=== PATIENT | female | born 1995 | race Caucasian/White ===

== ENCOUNTER 2017-01-27 17:29 | Emergency (ER) | payer OTHER ==
[2017-01-27 17:46] VITALS: RESP 16; TEMP 97.7
--- NOTE | 2017-01-27 19:37 | EDPHY ---
H & P Time Seen by Provider: 01/27/17 19:37 HPI/ROS: CHIEF COMPLAINT: Right sided chest pain HISTORY OF PRESENT ILLNESS: This 21-year-old woman presents with right-sided chest pain which started yesterday. Of note she had a cold all last week with sneezing and coughing and a runny nose and a little bit of a sore throat. Is feeling better now and she presents tonight with right-sided chest pain which started a little bit yesterday. She had 2 episodes today both lasting several minutes the 1st 1 at 1:00 p.m. when she describes it as sharp and pulsating and radiating down her right arm. Not associated with shortness of breath or hemoptysis or leg swelling. Not worse with exertion. A little bit worse with deep breath. REVIEW OF SYSTEMS: Eye: no change in vision ENT: HPI Cardiac: HPI Pulmonary: HPI Abdomen: no vomiting, diarrhea, abdominal pain Musculoskeletal: no back pain or leg swelling Skin: no rash Neuro: no headache Constitutional: no fever : no urinary symptoms A comprehensive 10 point review of systems is otherwise negative aside from elements mentioned in the history of present illness. PAST MEDICAL HISTORY: On oral contraceptive, wisdom tooth surgery Social history: Occasional cigarette, no cocaine, negative family history for venous thromboembolism or early cardiac disease. General Appearance: Alert and conversant, cooperative. Eyes: No scleral icterus. ENT, Mouth: Normal mucous membranes. Respiratory: Normal respiratory effort, breath sounds equal, lungs are clear to auscultation. Cardiovascular: Regular rate and rhythm. Gastrointestinal: Abdomen is soft and non tender. Neurological: Alert and oriented x3. Normally conversant. Face symmetric, normal movement and sensation in all extremities. Skin: Warm and dry, no rashes. Musculoskeletal: No peripheral edema and no joint swelling. No calf tenderness. Psychiatric: Not agitated. Emergency Department course/MDM: Low pretest probability for pulmonary embolism. EKG, chest x-ray, D-dimer. 2046: Results discussed, more likely pleurisy, stable for discharge. Smoking Status: Current every day smoker Constitutional: Initial Vital Signs Temperature (C) 36.5 C 01/27/17 17:43 Heart Rate 73 01/27/17 17:43 Respiratory Rate 16 01/27/17 17:43 Blood Pressure 148/67 H 01/27/17 17:43 O2 Sat (%) 98 01/27/17 17:43 O2 Delivery Mode Room Air Allergies/Adverse Reactions: No Known Allergies Allergy (Unverified 01/27/17 17:45) Home Medications: Medication Instructions Recorded Control 01/27/17 P-EPHED HCL/FEXOFENADINE HCL 01/27/17 [RASHEEDA-D 12 HOUR TABLET] Medical Decision Making - Diagnostics EKG Interpretation: 12-lead EKG interpreted by me; official reading is in trace master. My interpretation is sinus rhythm rate 79, normal, no ischemic changes. Imaging: Imaging Impressions Chest X-Ray 01/27/17 19:51 Impression: 1. Dextroscoliosis. 2. No acute pulmonary disease. Differential Diagnosis: Differential diagnosis considered for chest pain including but not limited to myocardial ischemia, aortic dissection, pericarditis, pulmonary embolus, chest wall pain, pleural inflammation and pulmonary infectious causes. - Data Points Laboratory Results: Laboratory Results 01/27/17 19:58 01/27/17 01/27/17 01/27/17 19:58 19:58 19:58 D-Dimer 0.38 ug/mLFEU ug/mLFEU (0.00-0.50) Sodium 139 mEq/L mEq/L (134-144) Potassium 3.5 mEq/L mEq/L (3.5-5.2) Chloride 103 mEq/L mEq/L (97-110) Carbon Dioxide 23 mEq/l mEq/l (22-31) Anion Gap 13 mEq/L mEq/L (8-16) BUN 11 mg/dL mg/dL (7-23) Creatinine 0.7 mg/dL mg/dL (0.6-1.0) Estimated GFR > 60 Glucose 94 mg/dL mg/dL (70-100) Calcium 9.6 mg/dL mg/dL (8.5-10.4) Beta HCG, Qual NEGATIVE Medications Given: Discontinued Medications Ibuprofen (Motrin) 600 mg PO EDNOW ONE Stop: 01/27/17 20:48 Last Admin: 01/27/17 20:57 Dose: 600 mg Departure - Departure Disposition: Home, Routine, Self-Care Clinical Impression: Chest pain Qualifiers: Chest pain type: unspecified Qualified Code(s): R07.9 - Chest pain, unspecified Condition: Good Instructions: Chest Pain (ED), Pleurisy (ED) Referrals: Dr. Estrella [Other] - As per Instructions (your PCP in [place])
--- NOTE | 2017-01-27 19:54 | CPEKG ---
Heart Rate: 79 RR Interval: 759 P-R Interval: 156 QRSD Interval: 84 QT Interval: 376 QTC Interval: 432 P Jefferson: -38 QRS Jefferson: 49 T Wave Jefferson: 42 EKG Severity - NORMAL ECG - EKG Impression: SINUS RHYTHM Electronically Signed By: Ryan Whipple 27-Jan-2017 21:11:18
[2017-01-27 20:18] LABS: ANION GAP 13 mEq/L (8-16); CALCIUM 9.6 mg/dL (8.5-10.4); CARBON DIOXIDE 23 mEq/l (22-31); CHLORIDE 103 mEq/L (97-110); CREATININE 0.7 mg/dL (0.6-1.0); GLOMERULAR FILTRATION RATE > 60; GLUCOSE 94 mg/dL (70-100); POTASSIUM 3.5 mEq/L (3.5-5.2); SODIUM 139 mEq/L (134-144)
[2017-01-27] MEDS ORDERED: IBUPROFEN 600 MG TAB PO ONE (20:47)
[2017-01-27 20:58] VITALS: BP 142/93; PULSE 71; O2SAT 96
== END 2017-01-27 20:58 | disposition home or self-care (01) ==
DX: R07.9 Chest pain, unspecified (principal); F17.210 Nicotine dependence, cigarettes, uncomplicated

== ENCOUNTER 2017-02-19 11:01 | Emergency (ER) | payer OTHER ==
--- NOTE | 2017-02-19 12:14 | EDPHY ---
H & P Stated Complaint: Sent from [facility] for eval poss Bartholin cyst Time Seen by Provider: 02/19/17 11:25 HPI/ROS: CHIEF COMPLAINT: Possible Bartholin cyst HISTORY OF PRESENT ILLNESS: 21-year-old immunocompetent female complaining of 4 days of right Bartholin's cyst pain seen at [facility] yesterday started on Keflex and Bactrim and referred to the ER today for possible incision and drainage of Bartholin cyst. No prior history of similar. No nausea no vomiting no abdominal pain. REVIEW OF SYSTEMS: A ten point review of systems was performed and is negative with the exception of the items mentioned in the HPI PAST MEDICAL & SURGICAL HISTORY: No pertinent medical or surgical history SOCIAL HISTORY:student PHYSICAL EXAM (Prior to examination, patient consented to physical exam, hands were washed and my usual and customary physical exam procedures followed) 1) GENERAL: Well-developed, well-nourished, alert and oriented. Appears nontoxic 2) HEAD: Normocephalic, atraumatic 3) HEENT: Sclera anicteric. 4) NECK: Full range of motion 5) LUNGS: Breathing comfortably 6) HEART: Regular rate and rhythm, 7) ABDOMEN: No guarding, no rebound, 8) MUSCULOSKELETAL: Moving all extremities, 9) BACK: [no visual or palpable abnormality. 10) examination with female nurse Jinger bedside reveals an area of soft tissue swelling, induration, fluctuance at Bartholin's gland consistent with Bartholin cyst. DIFFERENTIAL DIAGNOSIS: In no particular include but limited to herpes genitalis, Bartholin cyst abscess, cutaneous cyst - Personal History LMP (Females 10-55): 22-28 Days Ago Current Tetanus Diphtheria and Acellular Pertussis (TDAP): Yes - Medical/Surgical History Hx Asthma: No Hx Chronic Respiratory Disease: No Hx Diabetes: No Hx Cardiac Disease: No Hx Renal Disease: No Hx Cirrhosis: No Hx Alcoholism: No Hx HIV/AIDS: No Hx Splenectomy or Spleen Trauma: No Other PMH: PMH: control. PSH:dental, - Social History Smoking Status: Current some day smoker Constitutional: Initial Vital Signs Temperature (C) 36.6 C 02/19/17 11:10 Heart Rate 77 02/19/17 11:10 Respiratory Rate 19 02/19/17 11:10 Blood Pressure 125/91 H 02/19/17 11:10 O2 Sat (%) 97 02/19/17 11:10 O2 Delivery Mode Room Air Allergies/Adverse Reactions: No Known Allergies Allergy (Verified 02/19/17 11:15) Home Medications: Medication Instructions Recorded Control 01/27/17 Cephalexin [Keflex (*)] 500 mg PO QID 02/19/17 Sulfamethox/Tmp 800/160 mg 1 tab PO BID 02/19/17 [Bactrim Ds] Medical Decision Making Procedures: Procedure: Abscess drainage. Patient had a suspected right Bartholin cyst. With assistance of female nurse Tiffani I obtained verbal consent from the patient to drain the abscess who was informed about the possibility of bleeding and pain. The abscess was incised with a 11. Scalpel and a copious amount of purulent drainage was expressed, cultured, irrigated and packed with iodoform gauze as no Word catheters were available.. Patient tolerated procedure well - Data Points Medications Given: Discontinued Medications Chlordiazepoxide (Librium 25 Mg Prepack#6) 1 btl TAKEHOME EDNOW ONE Stop: 02/19/17 12:28 Last Admin: 02/19/17 12:43 Dose: Not Given Departure - Departure Disposition: Home, Routine, Self-Care Clinical Impression: Bartholin cyst Condition: Good Instructions: Bartholin Cyst (ED), Incision and Drainage (ED) Additional Instructions: Continue antibiotics until finished. Referrals: Jeannette Jeffries DO [Doctor of Osteopathy] - 2-3 days, call for appt. (Dr. Jeffries is an OBGYN)
[2017-02-19] MEDS ORDERED: CHLORDIAZEPOXIDE 25MG PREPK#6 BTL TAKEHOME ONE (12:27)
[2017-02-19 12:53] VITALS: BP 122/75; PULSE 70; RESP 16; TEMP 98.2; O2SAT 95
== END 2017-02-19 12:57 | disposition home or self-care (01) ==
PROC: 0U9LXZZ Drainage of Vestibular Gland, External Approach (ICD-10-PCS; principal; 2017-02-19)
DX: N75.0 Cyst of Bartholin's gland (principal); F17.200 Nicotine dependence, unspecified, uncomplicated

== ENCOUNTER 2017-02-21 15:32 | Emergency (ER) | payer OTHER ==
--- NOTE | 2017-02-21 17:49 | EDPHY ---
H & P Stated Complaint: p. cyst drained 2 days ago here --"needs it again" - Personal History LMP (Females 10-55): 8-14 Days Ago Current Tetanus/Diphtheria Vaccine: Unsure Current Tetanus Diphtheria and Acellular Pertussis (TDAP): Unsure - Medical/Surgical History Hx Asthma: No Hx Chronic Respiratory Disease: No Hx Diabetes: No Hx Cardiac Disease: No Hx Renal Disease: No Hx Cirrhosis: No Hx Alcoholism: No Hx HIV/AIDS: No Hx Splenectomy or Spleen Trauma: No Other PMH: PMH: control. PSH:dental, - Social History Smoking Status: Current some day smoker HPI/ROS: Chief complaint: Recurrent Bartholin gland abscess History of present illness: This is a 21-year-old female who presents to the emergency department for a recurrent Bartholin gland abscess. Patient developed swelling in her right labia a number of days ago. She was seen at [facility] and started on antibiotics. She was seen here 2 days ago and underwent incision and drainage. She states the packing fell out the next day. She states she is now developing increasing swelling in the region with associated pain. [facility] who recommended she come to the emergency room. They recommend she get a Torres catheter. Patient denies other associated signs or symptoms. No fevers. No abnormal vaginal discharge. No urinary symptoms. (Stanley Helm) - Physical Exam Exam: General: Alert, nontoxic Gastrointestinal: Abdomen soft, nondistended, nontender Genitourinary: There is swelling in the right lobular region. Incision site is noted that appears to be closing. (Stanley Helm) Constitutional: Initial Vital Signs Temperature (C) 36.4 C 02/21/17 15:54 Heart Rate 91 02/21/17 15:54 Respiratory Rate 16 02/21/17 15:54 Blood Pressure 122/76 H 02/21/17 15:54 O2 Sat (%) 98 02/21/17 15:54 O2 Delivery Mode Room Air Allergies/Adverse Reactions: No Known Allergies Allergy (Verified 02/19/17 11:15) Home Medications: Medication Instructions Recorded Control 01/27/17 Cephalexin [Keflex (*)] 500 mg PO QID 02/19/17 Sulfamethox/Tmp 800/160 mg 1 tab PO BID 02/19/17 [Bactrim Ds] Hydrocodone/APAP 5/325 [Fleming 1 tab PO Q6H #6 tab 02/21/17 5/325 (*)] Medical Decision Making ED Course/Re-evaluation: Patient seen under the supervision of my secondary supervising physician Dr. Winston Barton. Patient presents to the emergency department for recurrent Bartholin gland abscess. She does appear to have a recurrence of the abscess. I have consulted with Dr. Molina of OBGYN. She does not recommend Torres catheter. Regular incision and drainage with packing is recommended. This is performed. Patient will follow up with Dr. Molina, contact information is given. Home care is discussed. Return precautions are given. Patient voiced understanding and agreement with plan. (Stanley Helm) I did not see this patient while she was in the emergency department. However her care was discussed with the PA while the patient was in the department. I agree with treatment plan and management (Winston Barton) - Data Points Medications Given: Discontinued Medications Hydrocodone Bitart/Acetaminophen (Fleming 5/325mg Prepack#6) 1 btl TAKEHOME EDNOW ONE Stop: 02/21/17 17:54 Last Admin: 02/21/17 18:04 Dose: 1 btl Departure - Departure Disposition: Home, Routine, Self-Care Clinical Impression: Bartholin's gland abscess Condition: Good Instructions: Hydrocodone/Acetaminophen (By mouth), Bartholin Cyst (ED) Additional Instructions: Follow-up with OBGYN this week for continued evaluation and care This pass and apply warm compresses to the area multiple times daily as discussed In regards to pain control see the following: Use ibuprofen [600] mg [3] times a day for the next 2-3 days for pain In addition You have been prescribed [Fleming] for pain. [Fleming] contains Tylenol, do not take extra Tylenol/acetaminophen/Apap with it. It is sedating. If symptoms worsen or new symptoms develop return to the emergency room for recheck Referrals: RODDY,UNKNOWN [Other] - As per Instructions Geri Molina DO [Doctor of Osteopathy] - As per Instructions Prescriptions: Hydrocodone/APAP 5/325 [Fleming 5/325 (*)] 1 tab PO Q6H #6 tab
[2017-02-21] MEDS ORDERED: HYDROCOD/APAP 5/325 PREPACK#6 BTL TAKEHOME ONE (17:53)
[2017-02-21 18:21] VITALS: BP 142/97; PULSE 88; RESP 18; TEMP 98.4; O2SAT 97
== END 2017-02-21 18:19 | disposition home or self-care (01) ==
PROC: 0U9LXZZ Drainage of Vestibular Gland, External Approach (ICD-10-PCS; principal; 2017-02-21)
DX: N75.1 Abscess of Bartholin's gland (principal); F17.200 Nicotine dependence, unspecified, uncomplicated